=== PATIENT | male | born 1995 | race Caucasian/White ===

== ENCOUNTER 2017-08-04 14:45 | Emergency (ER) | payer SELFPAY ==
[2017-08-04] MEDS ORDERED: predniSONE 20 MG TAB ONE (15:09)
[2017-08-04] MEDS ORDERED: HYDROcodone/Acetaminophen 10/325 mg Tablet ONE (15:09)
[2017-08-04] MEDS ORDERED: AMOXicillin 250 MG CAP ONE (15:09)
== END 2017-08-04 15:20 | disposition home or self-care (01) ==
LOC: MADERS 14:45
DX: K02.9 Dental caries, unspecified (principal); F31.9 Bipolar disorder, unspecified; F43.10 Post-traumatic stress disorder, unspecified; F17.210 Nicotine dependence, cigarettes, uncomplicated
CPT/HCPCS: 99282; J7506